=== PATIENT | female | born 1950 | race Two or more races ===

== ENCOUNTER 2025-01-14 10:49 | Outpatient (OUT) | payer MEDICARE, SELFPAY ==
--- NOTE | 2025-01-14 11:16 | XR_ITS ---
The [address] [address] Patient Name: SERGE TAPIA MRN: [id number] date: 1950 Sex: F Assigned Patient Location: [facility] Current Patient Location: [facility] Accession/Order Number: [id number] Exam Date: 01/14/2025 12:12 Report Date: 01/14/2025 12:14 At the request of: ESPERANZA BUENROSTRO MD Procedure: XR abdomen 1V SINGLE VIEW ABDOMEN COMPARISON: 06/25/2020 CLINICAL DATA: Preoperative planning for lithotripsy. Right kidney stone. Supine view of the abdomen and pelvis was obtained. There is air and stool within the colon. There is no dilated small bowel. No soft tissue masses are seen. The kidneys are partially obscured. There is a large calcification at the right upper quadrant overlying the medial kidney measuring approximately 13 mm in size. This might be at the renal pelvis. No other suspect renal or ureteral stones are visualized. There is subtle levoscoliotic curvature and degenerative change at the spine. XR/XR abdomen 1V IMPRESSION: RIGHT NEPHROLITHIASIS. Impression dictated by: Carline Chaudhari M.D. 01/14/2025 12:14 PM Dictation Location: [place] [address] Electronically authenticated by: [id number] Y Date: 01/14/2025 12:14
--- NOTE | 2025-01-14 11:16 | ECG_ITS ---
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 Measurements Intervals [place] Rate: 56 P: 4 UT: 170 QRS: -33 QRSD: 104 T: -1 QT: 449 QTc: 436 Interpretive Statements SINUS BRADYCARDIA MARKED LEFT AXIS DEVIATION [QRS AXIS < -30] VOLTAGE CRITERIA FOR LVH [MEETS CRITERIA IN ONE OF: R(aVL), S(V1), R(V5), R(V5/V6)+S(V1)] Compared to ECG 06/19/2020 08:28:12 Left-axis deviation now present Left ventricular hypertrophy now present T-wave abnormality no longer present Electronically Signed On 01-14-2025 17:56:04 EDT by TESSA SMITH M.D.
--- NOTE | 2025-01-14 11:52 | PM.PRESUREVA ---
History of Present Illness History of Present Illness Chief complaint: right kidney stone Narrative: Patient presents for presurgical testing. Please see HPI from Dr. Sanabria dated January 13, 2025. Review of Systems ROS Narrative Please see ROS from Dr. Sanabria dated January 13, 2025. [facility] Medical History (Updated 01/14/25 @ 11:37 by Dayami Lopez NP) Anxiety ?F41.9 - Anxiety disorder, unspecified (ICD-10) COVID-19 (10/05/24) ?U07.1 - COVID-19 (ICD-10) Seasonal allergies ?J30.2 - Other seasonal allergic rhinitis (ICD-10) GERD (gastroesophageal reflux disease) ?K21.9 - Gastro-esophageal reflux disease without esophagitis (ICD-10) Postoperative nausea and vomiting ?R11.2 - Nausea with vomiting, unspecified (ICD-10) ?Z98.890 - Other specified postprocedural states (ICD-10) Depression ?F32.A - Depression, unspecified (ICD-10) Renal cyst ?N28.1 - Cyst of kidney, acquired (ICD-10) Hematuria ?R31.9 - Hematuria, unspecified (ICD-10) Breast cancer ?C50.919 - Malignant neoplasm of unspecified site of unspecified female breast (ICD-10) Kidney stones ?N20.0 - Calculus of kidney (ICD-10) Surgical History (Updated 01/14/25 @ 11:37 by Dayami Lopez NP) History of hysterectomy ?Z90.710 - Acquired absence of both cervix and uterus (ICD-10) History of colonoscopy ?Z98.890 - Other specified postprocedural states (ICD-10) S/P cataract extraction and insertion of intraocular lens ?Z98.49 - Cataract extraction status, unspecified eye (ICD-10) ?Z96.1 - Presence of intraocular lens (ICD-10) History of breast biopsy ?Z98.890 - Other specified postprocedural states (ICD-10) H/O cystoscopy ?Z98.890 - Other specified postprocedural states (ICD-10) H/O lithotripsy ?Z98.890 - Other specified postprocedural states (ICD-10) S/P lumpectomy of breast ?Z98.890 - Other specified postprocedural states (ICD-10) Family History (Updated 01/14/25 @ 11:37 by Dayami Lopez NP) Other Family history of breast cancer Social History (Updated 01/14/25 @ 11:33 by Dayami Lopez NP) Within the past year, how often did you have a drink containing alcohol: monthly or less Smoking status: Current every day smoker What tobacco products do you use: cigarettes Cigarettes per day: 10 Years smoked: 50 Smoking pack-years: 25.00 Non-prescribed substance use: denies use Highest level of school completed/degree received: some college, no degree Meds Home Medications and Allergies Home Medications ?Medication ?Instructions ?Recorded ?Confirmed ?Type albuterol sulfate 90 mcg/actuation 2 inh inhalation Q4H PRN shortness 01/14/25 01/14/25 History aerosol inhaler of breath or wheezing amitriptyline 10 mg tablet 10 mg PO QPM 01/14/25 01/14/25 History clonazepam 0.5 mg disintegrating 0.5 mg PO Q8H PRN anxiety 01/14/25 01/14/25 History tablet melatonin 10 mg capsule 10 mg PO DAILY 01/14/25 01/14/25 History pantoprazole 40 mg tablet,delayed 40 mg PO QPM 01/14/25 01/14/25 History release sertraline 100 mg tablet 100 mg PO QPM 01/14/25 01/14/25 History Allergies Allergy/AdvReac Type Severity Reaction Status Date / Time oxycodone AdvReac Nausea Verified 01/14/25 11:37 Exam Narrative Exam Narrative: Constitutional: Awake, alert, comfortable, well-appearing, nontoxic, interactive, vital signs as charted Head: Normocephalic, atraumatic Neck: Supple, normal appearance, normal range of motion, no meningeal signs, no lymphadenopathy Respiratory: No respiratory distress, breath sounds clear Cardiovascular: Regular rate and rhythm, strong and regular heart tones Abdomen: Nontender, normal bowel sounds, soft, no CVA tenderness Musculoskeletal: Normal gait, no swelling or edema Skin: No rashes or induration, no lesions, only visible skin inspected Neuro: No neurological deficits, normal sensation Psychiatric: Oriented ?3, normal affect Assessment and Plan Assessment and Plan (1) Kidney stones: Plan Right ESWL, possible cystoscopy, stent basement, possible right retrograde, right ureteroscopy, holmium laser scheduled with Dr. Sanabria January 16, 2025.
[2025-01-14 12:03] LABS: Basophils Absolute Auto 0.1 10^3/uL (0.0-0.1); Basophils Percent Auto 0.6 % (0.2-2.0); Eosinophils Absolute Auto 0.2 10^3/uL (0.0-0.7); Hematocrit 41.7 % (36.0-48.0); Hemoglobin 13.6 g/dL (12.0-16.0); Immature Granulocytes Abs Auto 0.03 10^3/uL (0.00-0.03); Immature Granulocytes Pct Auto 0.3 % (0.0-0.5); Lymphocytes Percent Auto 23.2 % (20.5-60.0); Mean Corpuscular HGB Conc 32.6 g/dL (29.9-35.2); Mean Corpuscular Hemoglobin 29.8 pg (26.7-34.0); Mean Corpuscular Volume 91.4 fL (81.0-99.0); Mean Platelet Volume 10.9 fL (9.5-13.5); Monocytes Absolute Auto 0.7 10^3/uL (0.3-0.8); Neutrophils Absolute Auto 5.7 10^3/uL (1.4-6.5); Neutrophils Percent Auto 65.9 % (43.0-75.0); Platelet Count 319 10^3/uL (150-450); Red Blood Count 4.56 10^6/uL (4.20-5.40); Red Cell Distribution Width 15.6 % (11.0-15.0); White Blood Count 8.6 10^3/uL (4.0-11.0)
[2025-01-14 12:09] LABS: Anion Gap 6.8; BUN Creatinine Ratio 24.4; Calcium 9.5 mg/dL (8.5-10.1); Carbon Dioxide 32.6 mmol/L (21.0-32.0); Chloride 103 mmol/L (98-107); Estimated GFR (African America >60 (>=60 mL/min/1.73m^2); Estimated GFR (Non-African Ame >60 (>=60 mL/min/1.73m^2); Glucose 99 mg/dL (74-106); Potassium 4.4 mmol/L (3.5-5.1); Sodium 138 mmol/L (136-145)
[2025-01-14 12:16] LABS: INR 0.96; Partial Thromboplastin Time 25.5 sec (22.3-36.2); Prothrombin Time 10.2 sec (9.0-11.6)
== END 2025-01-14 10:50 | disposition home or self-care (01) ==
LOC: PST 10:56
PROVIDERS: PCP Family Medicine; Visit Provider Urology
DX: Z01.810 Encounter for preprocedural cardiovascular examination (principal); Z01.812 Encounter for preprocedural laboratory examination; Z01.818 Encounter for other preprocedural examination; N20.0 Calculus of kidney
CPT/HCPCS: 74018; 80048; 85025; 85610; 85730; 93005; G0463

== ENCOUNTER 2025-01-16 09:00 | Day surgery (SDC) | payer MEDICARE, SELFPAY ==
[2025-01-14 11:46] VITALS: BP 154/74; PULSE 66; TEMP 36.3; O2SAT 95; BMI 22.5
[2025-01-16] VITALS (9 sets, daily range): BP systolic 124–144; BP diastolic 58–72; PULSE 49–59; TEMP 36.1–36.6; O2SAT 94–97; BMI 22.3
[2025-01-16] MEDS: LACTATED RINGER'S SOLUTION 1,000 ML 50 ML IV (09:25)
[2025-01-16] MEDS: CEFAZOLIN SODIUM 2 GM/50 ML D5W PREMIX IV (09:58)
[2025-01-16] MEDS: IOHEXOL 300 MG/ML - 50 ML BTL INJ (10:53)
--- NOTE | 2025-01-16 11:09 | PM.URSON ---
Urology Surgery Operative Note Operative Note Procedure Date: 01/16/25 Time Out Performed: yes Pre-op Diagnosis: Right renal calculi Post-op Diagnosis: same as pre-op Procedures performed: 1. Right ESWL. 2. Cystoscopy. 3. Right retrograde pyelogram. 4. Placement of 6 Pakistani variable length right ureteral stent Anesthesia: General-LMA Primary Surgeon: Antoine Sanabria Complications: None Estimated blood loss (mL): 10 Findings: A 13 mm and a 7 mm right renal pelvis stone Specimens: None Drains: 6 Pakistani variable length right ureteral stent Indications for Procedures: This lady was found to have a 13 mm and a 7 mm left renal pelvic calcification. She has had some mild pain from this. She now presents for right ESWL and possible ureteroscopic stone manipulation with laser lithotripsy. She has signed an informed consent after risks were explained. Some of these risks include bleeding, perinephric hematoma, infection and anesthesia to name a few. Detailed description of Procedure: The patient was brought to the Operating Room and placed on Siemens electromagnetic lithotripsy treatment table in the supine position. SCDs were placed on their lower extremities and turned on and functioning during the entire case. Timeout was done by all parties in the room. We all agreed upon the patient's identification and the planned procedures for this patient. General Anesthesia was then administered via LMA. Treatment head was then brought to the patient's correct side. While using flourscopy the stone was identified and lined up into the crosshairs. We then began applying shocks. I started at a power level of 2.0 and increased to a maximum power level of 3.5. Intermittent fluoroscopy revealed that after 800 shocks we began seeing significant fragmentation. This continued on as we continued applying shocks. We applied a total of 3250 shocks. We had excellent fragmentation. No true formed stone was visible fluoroscopically from either of the 2 stones. Due to this large burden of stone debris within her renal pelvis I elected to do at least a cystoscopy and retrograde pyelogram. She was then repositioned into the modified dorsolithotomy position. All pressure points were satisfactorily padded. Genitalia were sterilely prepped and draped in the usual fashion. I started by passing a 22 [place] Olympus cystoscope per urethra and into the bladder. Panendoscopy in the bladder revealed no evidence of any tumors but there was some bloody urine which made visibility difficult. I was able to pass a 8 Pakistani cone-tip catheter through the scope and cannulate the right UO. Contrast was injected in a retrograde manner and I could see that the ureter was not obstructed but there was large filling defects within the kidney. This did not represent solid stone but a large burden of stone debris sand and fragments. Because of this large amount of debris I did elect to place a stent. A Glidewire was passed up the right ureter into the kidney. I then passed a 6 Pakistani variable length stent over the wire up into the kidney. The wire was removed and there were good curls in the kidney and in the bladder. The bladder was drained of its contents and the scope was then removed. She was then transferred to a [facility] bed and wheeled to PACU in stable condition.
--- NOTE | 2025-01-16 11:34 | PC.NURSE ---
right flank area noted to be pink in color with abrasions noted
[2025-01-16] MEDS: SOLIFENACIN SUCCINATE 10 MG TABLET PO (11:38)
== END 2025-01-16 12:53 | disposition home or self-care (01) ==
PROVIDERS: PCP Family Medicine; Visit Provider Urology
PROC: (CPT 50590; principal; 2025-01-16 10:15)
DX: N20.0 Calculus of kidney (principal); Z90.710 Acquired absence of both cervix and uterus; F17.210 Nicotine dependence, cigarettes, uncomplicated; K21.9 Gastro-esophageal reflux disease without esophagitis
CPT/HCPCS: 50590; 52332; 36415; J0690; J1100; J1885; J2250; J2371; J2405; J2704; J3010; Q9967